=== PATIENT | female | born 1940 | race Native Hawaiian/Other Pacific Islander ===

== ENCOUNTER 2016-05-01 14:28 | Outpatient (CLI) | payer OTHER ==
[~2016-05-01 14:28] MED LIST: CARAFATE1 GM PO; FLUTICASONE50 MCG; LIPITOR10 MG PO; LORAZEPAM0.5 MG PO; NEXIUM40 M1 PO; PAROXETINE40 MG PO; PHENYTOIN EX100 MG PO; TIROSINT100 MCG PO; TRAM50TA PO
[2016-05-01 14:49] LABS: PLATELET COUNT 187 K/uL (152-353)
[2016-05-01 15:13] LABS: SODIUM 138 mmol/L (136-145)
== END 2016-05-01 20:15 | disposition home or self-care (01) ==
LOC: LAB 14:28
PROVIDERS: Nurse Practitioner Family
DX: D64.89 Other specified anemias (principal); K21.9 Gastro-esophageal reflux disease without esophagitis; R51 Headache; E03.8 Other specified hypothyroidism; Z79.899 Other long term (current) drug therapy; M15.8 Other polyosteoarthritis
CPT/HCPCS: 80053; 80061; 84439; 84443; 85027

== ENCOUNTER 2016-10-09 13:40 | Outpatient (CLI) | payer OTHER ==
[2016-10-09 14:26] LABS: PLATELET COUNT 223 K/uL (152-353)
[2016-10-09 14:49] LABS: POTASSIUM 4.7 mmol/L (3.6-5.2); SODIUM 143 mmol/L (136-145)
== END 2016-10-09 14:40 | disposition home or self-care (01) ==
LOC: LAB 13:40
PROVIDERS: Nurse Practitioner Family
DX: Z00.00 Encounter for general adult medical examination without abnormal findings (principal); Z79.899 Other long term (current) drug therapy; F41.8 Other specified anxiety disorders; K21.9 Gastro-esophageal reflux disease without esophagitis; E03.8 Other specified hypothyroidism; R56.9 Unspecified convulsions; Z13.820 Encounter for screening for osteoporosis; E55.9 Vitamin D deficiency, unspecified
CPT/HCPCS: 80053; 80061; 82306; 82607; 83036; 84436; 84443; 85027

== ENCOUNTER 2017-12-16 12:14 | Outpatient (CLI) | payer OTHER | END 2017-12-16 12:24 | disposition short-term general hospital (02) | LOC: AMB 12:14 | DX: R10.84 Generalized abdominal pain (principal) | CPT/HCPCS: A0425; A0427 ==

== ENCOUNTER 2017-12-16 12:28 | Emergency (ER) | payer OTHER ==
[~2017-12-16] VITALS: Ht 160 cm; Wt 52.2 kg
[2017-12-16 12:35] VITALS: BP 95/50
[2017-12-16 13:03] LABS: PLATELET COUNT 285 K/uL (152-353)
[2017-12-16 13:12] LABS: POTASSIUM 3.3 mmol/L (3.6-5.2)
[2017-12-16 14:00] VITALS: TEMP 96.5
== END 2017-12-16 18:47 | disposition short-term general hospital (02) ==
LOC: ED 12:28
PROVIDERS: Family Medicine
DX: R00.1 Bradycardia, unspecified (principal); I95.89 Other hypotension; R41.82 Altered mental status, unspecified
CPT/HCPCS: 36415; 74022; 80053; 81000; 84484; 85027; 93005; 96365; 96374; 96375; 99285; J1885; J2550